=== PATIENT | female | born 1950 | race Caucasian/White ===

== ENCOUNTER 2017-05-02 13:22 | Inpatient (IN) | payer OTHER ==
[~2017-05-02] VITALS: Ht 152.4 cm; Wt 65.9 kg
[~2017-05-02 13:22] MED LIST: BAYER GENUINE325 M1 PO; CARVEDILOL6.25 M1 PO; COREG12.5 MG PO; DIGOXIN0.125 M1 PO; DORZOLAMIDE HYD10 M3 OD; ENALAPRIL MALEAT5 MG PO; ENALAPRIL5 M1 PO; GLIPIZIDE5 MG PO; KLOR-CON 88 MEQ PO; LANTUS SOLOS100 U/M1; LASIX40 MG PO; LEVOTHYROXIN0.025 M2 PO; LIPITOR40 MG PO; MAC100 PO; METFORMIN HCL1000 MG PO; METFORMIN500 M1 PO; NITROGLYCERIN0.4 MG SL; SIMVASTATIN20 M1 PO
[2017-05-02 14:41] LABS: BASOPHIL % 0.3 % (0-2); PLATELET COUNT 241 x10^3mcL (130-400); RED CELL DISTRIBUTION WIDTH 12.9 % (11.5-14.5)
[2017-05-02 15:03] LABS: CALCIUM 8.6 mg/dL (8.5-10.1); CARBON DIOXIDE 24.2 mmol/L (21-32); POTASSIUM SERUM 4.7 mmol/L (3.5-5.1)
[2017-05-02 15:07] LABS: BILIRUBIN TOTAL 0.44 mg/dL (0.20-1.00)
[2017-05-02] MEDS ORDERED: COZAAR100 MG PO (15:12)
[2017-05-02] MEDS ORDERED: NOR10 PO (15:12)
[2017-05-02] MEDS ORDERED: NASONEX0.05 MG/Ac (15:13)
[2017-05-02 15:38] LABS: UA SPECIFIC GRAVITY <=1.005 (1.005-1.035); microscopic required? YES; urine erythrocyte TRACE (NEGATIVE)
[2017-05-02 16:30] LABS: T3 TOTAL 0.82 ng/mL
[2017-05-02 16:38] LABS: FREE T4 1.08 ng/dL (0.76-1.46); FREE THYROXINE INDEX 2.9 ug/dL (1.4-4.5); T4(THYROXINE) 7.9 ug/dL (4.7-13.3)
[2017-05-02 16:57] LABS: MAGNESIUM 1.8 mg/dL (1.8-2.4); PHOSPHOROUS 3.4 mg/dL (2.5-4.9)
[2017-05-02 16:58] LABS: CHOLESTEROL/HDL RATIO 2.4
[2017-05-02 17:10] VITALS: BP 146/46
[2017-05-02 17:13] VITALS: Ht 152.4 cm; Wt 65.9 kg
[2017-05-02 19:22] LABS: RED BLOOD CELLS 2.82 M/mm3 (4.10-5.10)
[2017-05-02 19:40] LABS: IRON 37 ug/dL (50-170)
[2017-05-02 19:48] LABS: TOTAL IRON BINDING CAPACITY 233 ug/dL (250-450)
[2017-05-02 21:32] VITALS: BP 139/50
[2017-05-03 05:35] VITALS: BP 149/52
[2017-05-03 06:51] LABS: BASOPHIL % 0.4 % (0-2); PLATELET COUNT 220 x10^3mcL (130-400)
[2017-05-03 07:37] LABS: CALCIUM 8.4 mg/dL (8.5-10.1); CARBON DIOXIDE 23.4 mmol/L (21-32); CHLORIDE SERUM 106 mmol/L (98-107); CREATININE SERUM 0.8 mg/dL (0.6-1.0); GFR1 > 60 mL/min; GLUCOSE SERUM 102 mg/dL (74-106); MAGNESIUM 1.7 mg/dL (1.8-2.4); PHOSPHOROUS 3.5 mg/dL (2.5-4.9); POTASSIUM SERUM 4.5 mmol/L (3.5-5.1); SODIUM SERUM 137 mmol/L (136-145)
[2017-05-03 09:41] VITALS: BP 150/53
[2017-05-03 12:58] VITALS: BP 138/53
[2017-05-03 15:03] LABS: AMPHETAMINE QUAL UR NONE DETECTED (NEG <=1000)
[2017-05-03 17:10] VITALS: BP 130/48
[2017-05-03 21:17] VITALS: BP 152/75
[2017-05-03 22:20] VITALS: BP 148/50
[2017-05-04 06:34] VITALS: BP 149/55
[2017-05-04 09:18] LABS: BASOPHIL % 0.5 % (0-2); PLATELET COUNT 232 x10^3mcL (130-400); RED CELL DISTRIBUTION WIDTH 13.3 % (11.5-14.5)
[2017-05-04 09:21] LABS: CALCIUM 8.6 mg/dL (8.5-10.1); CARBON DIOXIDE 24.2 mmol/L (21-32); CHLORIDE SERUM 104 mmol/L (98-107); CREATININE SERUM 0.9 mg/dL (0.6-1.0); GFR1 > 60 mL/min; GLUCOSE SERUM 183 mg/dL (74-106); MAGNESIUM 1.7 mg/dL (1.8-2.4); POTASSIUM SERUM 4.5 mmol/L (3.5-5.1); SODIUM SERUM 136 mmol/L (136-145)
[2017-05-04 09:36] VITALS: BP 142/51
[2017-05-04 12:57] VITALS: BP 138/56
[2017-05-04] MEDS ORDERED: LEVOFLOXACIN750 M1 PO (15:17)
[2017-05-04] MEDS ORDERED: LAC PO (15:18)
[2017-05-04] MEDS ORDERED: ROBITUSSIN W/CODEINE PO (15:36)
[2017-05-04] MEDS ORDERED: NOVAPLUS F0.05 MG/Ac (15:36)
[2017-05-04 15:49] VITALS: BP 138/56
== END 2017-05-04 16:24 | disposition home or self-care (01) | DRG 205 ==
LOC: ED 13:22 → DU 15:15
PROVIDERS: Emergency Medicine; ADMIT Family Medicine Sports Medicine
DX: M94.0 Chondrocostal junction syndrome [Tietze] (principal); N17.0 Acute kidney failure with tubular necrosis; I50.43 Acute on chronic combined systolic (congestive) and diastolic (congestive) heart failure; N39.0 Urinary tract infection, site not specified; E87.1 Hypo-osmolality and hyponatremia; E44.0 Moderate protein-calorie malnutrition; I11.0 Hypertensive heart disease with heart failure; E11.65 Type 2 diabetes mellitus with hyperglycemia; E11.51 Type 2 diabetes mellitus with diabetic peripheral angiopathy without gangrene; E03.9 Hypothyroidism, unspecified; I25.10 Atherosclerotic heart disease of native coronary artery without angina pectoris; D63.8 Anemia in other chronic diseases classified elsewhere; Z68.29 Body mass index [BMI] 29.0-29.9, adult; Z95.1 Presence of aortocoronary bypass graft; Z79.4 Long term (current) use of insulin
CPT/HCPCS: 82962; 83880; 84439; G0480; J0696; J3010; J7030; Q0092